=== PATIENT | male | born 1995 | race Caucasian/White ===

== ENCOUNTER 2016-03-18 20:55 | Emergency (ER) | payer OTHER ==
[~2016-03-18 20:55] MED LIST: TYLENOL #3
[2016-03-18] MEDS ORDERED: ONDANSETRON 4 MG ORAL DISINTEGRATING TAB (S0181) As Ordered ONE (22:06)
[2016-03-18] MEDS ORDERED: METHOCARBAMOL 500 MG TAB As Ordered ONE ×2 (22:06→22:07)
[2016-03-18] MEDS ORDERED: NORCO 5/325MG TABLET (BULK) As Ordered ONE (22:06)
--- NOTE | 2016-03-18 22:17 | EDDOCDS ---
Physician Documentation [facility] Name: Isai Cardenas Age: 20 yrs Sex: Male : 1995 Arrival Date: 03/18/2016 Time: 20:55 Bed TR7 Private MD: No Pcp Disposition: 03/18/16 22:08 Discharged to Home/Self Care. Impression: Strain of muscle, fascia and tendon of lower back, Acute upper respiratory infection, unspecified. - Condition is Stable. - Discharge Instructions: Lumbosacral Strain, Back Pain, Adult, Upper Respiratory Infection, Adult. - Prescriptions for Ibuprofen 800 mg Oral Tablet - take 1 tablet by ORAL route every 8 hours As needed take with food; 30 tablet. Robaxin 500 mg Oral Tablet - take 2 tablet by ORAL route every 6 hours As needed; 40 tablet. - Medication Reconciliation, Local Pharmacy Hours form. - Follow up: Private Physician; When: Call to arrange an appointment; Reason: Recheck today's complaints, Continuance of care. - Problem is new. - Symptoms are unchanged. - Notes: do not take motrin if you actually have perscription for toradol (ketorolac) as both medications are NSAIDS and cant not be combine Historical: - Allergies: Ceclor; - Home Meds: 1. none - PMHx: Migraine Headachesresolved; - PSHx: Inguinal hernia repair; Tubes in ears; vericoceles; - Social history: Smoking status: Patient uses tobacco products, light tobacco smoker. No barriers to communication noted, The patient speaks fluent South Sudanese, Speaks appropriately for age. - Family history: Not pertinent. - : The pt / caregiver states he / she is not on anticoagulants. Home medication list is obtained from the patient. - Exposure Risk Screening:: None identified. Vital Signs: 03/18 20:57 BP 161 / 79; Pulse 112; Resp 22 S; Temp 100.1(O); Pulse Ox 95% on R/A; Weight 62.6 kg / dd6 138.01 lbs (R); Height 5 ft. 7 in. (170.18 cm) (R); 20:57 Body Mass Index 21.61 (62.60 kg, 170.18 cm) dd6 MDM: 22:02 Financial registration complete. kf3 22:03 Ondansetron ODT Oral Disintegrating Tablet 4 mg PO once ordered. mo1 22:03 HYDROcodone-acetaminophen 4 pack- 5 mg-325 mg 1 packets PO Per package directions; mo1 Dispense with patient. 1 po q4h prn for pain ordered. 22:03 Methocarbamol 1 grams PO once ordered. mo1 22:06 [facility] Payment Agreement was scanned into [employer] and attached to record. kf3 Administered Medications: 22:10 Drug: Ondansetron ODT 4 mg [ondansetron 4 mg disintegrating tablet (1 tabs)] Route: PO; rs3 22:10 Drug: HYDROcodone-acetaminophen 4 pack- 1 packets [hydrocodone 5 mg-acetaminophen 325 rs3 mg tablet (1 tabs)] {Co-Signature: nahum (Oleg Lawson RN).} Route: PO; 22:10 Drug: Methocarbamol 1 grams [methocarbamol 500 mg tablet (2 tabs)] Route: PO; rs3 Signatures: Jacqui Roman RN RN km Oleg Lawson RN RN cz Navjot Parmar, Reg Reg kf3 Christopher Wu PA PA mo1 Shyanne Buitrago RN rs3 Oelg Lawson RN cz The chart was reviewed and I authenticate all verbal orders and agree with the evaluation and treatment provided.Attachments: 22:06 [facility] Payment Agreement kf3 MTDD
--- NOTE | 2016-03-18 22:17 | EDDOCDS ---
Nurse's Notes [facility] Name: Isai Cardenas Age: 20 yrs Sex: Male : 1995 Arrival Date: 03/18/2016 Time: 20:55 Bed TR7 Private MD: No Pcp Diagnosis: Strain of muscle, fascia and tendon of lower back;Acute upper respiratory infection, unspecified Presentation: 03/18 21:02 Presenting complaint: Patient states: Was diagnosed with the flu earlier today. Was not kmg1 able to get to the pharmacy to get meds before it closed. Also having back spasms. Adult Sepsis Screening: The patient does not have new or worsening altered mentation. Patient has a respiratory rate of greater than or equal to 22 (1 point). Systolic blood pressure is greater than 100. Patient has a qSOFA score of 0- Negative Sepsis Screen. Suicide/Homicide risk assessment- the patient denies having any suicidal and/or homicidal ideations and does not present with any other emotional, behavioral or mental health complaints. Status: The patient is a dependent. Transition of care: patient was not received from another setting of care. 21:02 Acuity: JA Level 5 [facility] 21:02 Method Of Arrival: Walkin/Carried/Asstd [facility] [place] Triage Assessment: 21:04 General: Appears in no apparent distress, comfortable, Behavior is appropriate for age, kmg1 cooperative, pleasant. Pain: Location: back Pain currently is 10 out of 10 on a pain scale. Quality of pain is described as spasms. Pt Declines HIV testing. Neurological: Reports headache weakness. GI: Reports nausea, vomiting. Historical: - Allergies: Ceclor; - Home Meds: 1. none - PMHx: Migraine Headachesresolved; - PSHx: Inguinal hernia repair; Tubes in ears; vericoceles; - Social history: Smoking status: Patient uses tobacco products, light tobacco smoker. No barriers to communication noted, The patient speaks fluent Moldovan, Speaks appropriately for age. - Family history: Not pertinent. - : The pt / caregiver states he / she is not on anticoagulants. Home medication list is obtained from the patient. - Exposure Risk Screening:: None identified. Screenin:14 Screening information is obtained from the patient. Fall risk: No risks identified. cz Assistance ADL's: requires no assistance with activities of daily living. Abuse/DV Screen: The patient / caregiver reports he/she is: not in a situation that causes fear, pain or injury. Nutritional screening: No deficits noted. Advance Directives: Currently, there is no health care proxy. There is no active DNR order. There is no living will. There is no Power of Hand Ii Cutter. Advance directive information has not previously been placed in an [facility] medical record. home support is adequate. Assessment: 22:14 Reassessment: Patient appears in no apparent distress at this time. cz Vital Signs: 20:57 BP 161 / 79; Pulse 112; Resp 22 S; Temp 100.1(O); Pulse Ox 95% on R/A; Weight 62.6 kg dd6 (R); Height 5 ft. 7 in. (170.18 cm) (R); 20:57 Body Mass Index 21.61 (62.60 kg, 170.18 cm) dd6 Vitals: 20:57 Log In Time: March 18, 2016 at 20:55. dd6 ED Course: 20:57 Patient visited by Denny Gonzalez PCA. dd6 20:57 No Pcp is Private Physician. dd6 20:57 Patient moved to Waiting dd6 20:59 Patient moved to Pre RCE dd6 21:03 Triage Initiated kmg1 21:07 Patient visited by Jacqui Roman RN. kmg1 21:24 Patient moved to Triage 1 ar3 21:49 Christopher Wu PA is PHCP. mo1 21:49 Ashish Box DO is Attending Physician. mo1 21:56 Patient visited by Christopher Wu PA. mo1 22:06 [facility] Payment Agreement was scanned into [employer] and attached to record. kf3 22:14 Patient moved to TR7 ar3 22:14 The patient / caregiver is instructed regarding the plan of care and ED course. cz 22:14 No IV's were initiated during this patient's visit. No procedures done that require cz assistance. Administered Medications: 22:10 Drug: Ondansetron ODT 4 mg [ondansetron 4 mg disintegrating tablet (1 tabs)] Route: PO; rs3 22:10 Drug: HYDROcodone-acetaminophen 4 pack- 1 packets [hydrocodone 5 mg-acetaminophen 325 rs3 mg tablet (1 tabs)] {Co-Signature: cz (Oleg Zecher RN).} Route: PO; 22:10 Drug: Methocarbamol 1 grams [methocarbamol 500 mg tablet (2 tabs)] Route: PO; rs3 Order Results: There are currently no results for this order. Outcome: 22:08 Discharge ordered by Provider. mo1 22:14 Discharge Assessment: Patient awake, alert and oriented x 3. No cognitive and/or cz functional deficits noted. Patient verbalized understanding of disposition instructions. patient administered narcotics - no. The following High Risk Discharge criteria are identified: None. Discharged to home ambulatory. Condition: stable. Discharge instructions given to patient, Instructed on discharge instructions, follow up and referral plans. medication usage, Demonstrated understanding of instructions, medications, Pt was receptive of discharge instructions/ teaching. Prescriptions given X 2. No special radiology studies were completed. Property :Personal belongings accompany Pt. 22:16 Patient left the ED. cz Signatures: Jacqui Roman, RN RN km Oleg Lawson RN RN cz Navjot Parmar, Reg Reg kf3 Denny Gonzalez, DINKEY SKINNER DINKEY SKINNER dd6 Shyanne BuitragoRN RN rs3 Susan Dumont, DINKEY SKINNER DINKEY SKINNER ar3 Christopher Wu PA PA mo1 Oleg sidhu MTDD
--- NOTE | 2016-03-20 23:17 | EDDOCDS ---
Physician Documentation [facility] Name: Isai Cardenas Age: 20 yrs Sex: Male : 1995 Arrival Date: 03/18/2016 Time: 20:55 Bed TR7 Private MD: No Pcp Disposition: 03/18/16 22:08 Discharged to Home/Self Care. Impression: Strain of muscle, fascia and tendon of lower back, Acute upper respiratory infection, unspecified. - Condition is Stable. - Discharge Instructions: Lumbosacral Strain, Back Pain, Adult, Upper Respiratory Infection, Adult. - Prescriptions for Ibuprofen 800 mg Oral Tablet - take 1 tablet by ORAL route every 8 hours As needed take with food; 30 tablet. Robaxin 500 mg Oral Tablet - take 2 tablet by ORAL route every 6 hours As needed; 40 tablet. - Medication Reconciliation, Local Pharmacy Hours form. - Follow up: Private Physician; When: Call to arrange an appointment; Reason: Recheck today's complaints, Continuance of care. - Problem is new. - Symptoms are unchanged. - Notes: do not take motrin if you actually have perscription for toradol (ketorolac) as both medications are NSAIDS and cant not be combine Historical: - Allergies: Ceclor; - Home Meds: 1. none - PMHx: Migraine Headachesresolved; - PSHx: Inguinal hernia repair; Tubes in ears; vericoceles; - Social history: Smoking status: Patient uses tobacco products, light tobacco smoker. No barriers to communication noted, The patient speaks fluent Estonian, Speaks appropriately for age. - Family history: Not pertinent. - : The pt / caregiver states he / she is not on anticoagulants. Home medication list is obtained from the patient. - Exposure Risk Screening:: None identified. Vital Signs: 03/18 20:57 BP 161 / 79; Pulse 112; Resp 22 S; Temp 100.1(O); Pulse Ox 95% on R/A; Weight 62.6 kg / dd6 138.01 lbs (R); Height 5 ft. 7 in. (170.18 cm) (R); 20:57 Body Mass Index 21.61 (62.60 kg, 170.18 cm) dd6 MDM: 22:02 Financial registration complete. kf3 22:03 Ondansetron ODT Oral Disintegrating Tablet 4 mg PO once ordered. mo1 22:03 HYDROcodone-acetaminophen 4 pack- 5 mg-325 mg 1 packets PO Per package directions; mo1 Dispense with patient. 1 po q4h prn for pain ordered. 22:03 Methocarbamol 1 grams PO once ordered. mo1 22:06 [facility] Payment Agreement was scanned into [employer] and attached to record. kf3 03/19 11:00 T-Sheet-- Draft Copy was scanned into [employer] and attached to record. gb Administered Medications: 03/18 22:10 Drug: Ondansetron ODT 4 mg [ondansetron 4 mg disintegrating tablet (1 tabs)] Route: PO; rs3 22:10 Drug: HYDROcodone-acetaminophen 4 pack- 1 packets [hydrocodone 5 mg-acetaminophen 325 rs3 mg tablet (1 tabs)] {Co-Signature: nahum (Oleg Lawson RN).} Route: PO; 22:10 Drug: Methocarbamol 1 grams [methocarbamol 500 mg tablet (2 tabs)] Route: PO; rs3 Signatures: Jacqui Roman, RN RN km Oleg Lawson RN RN cz Jennie Lerner, Reg Reg gb Navjot Parmar, Reg Reg kf3 Christopher Wu PA PA mo1 Shyanne Buitrago RN rs3 Oleg sidhu The chart was reviewed and I authenticate all verbal orders and agree with the evaluation and treatment provided.Attachments: 22:06 [facility] Payment Agreement kf3 03/19 11:00 T-Sheet-- Draft Copy gb Chart Complete MTDD
--- NOTE | 2016-03-20 23:17 | EDDOCDS ---
Physician Documentation [facility] Name: Isai Cardenas Age: 20 yrs Sex: Male : 1995 Arrival Date: 03/18/2016 Time: 20:55 Bed TR7 Private MD: No Pcp Disposition: 03/18/16 22:08 Discharged to Home/Self Care. Impression: Strain of muscle, fascia and tendon of lower back, Acute upper respiratory infection, unspecified. - Condition is Stable. - Discharge Instructions: Lumbosacral Strain, Back Pain, Adult, Upper Respiratory Infection, Adult. - Prescriptions for Ibuprofen 800 mg Oral Tablet - take 1 tablet by ORAL route every 8 hours As needed take with food; 30 tablet. Robaxin 500 mg Oral Tablet - take 2 tablet by ORAL route every 6 hours As needed; 40 tablet. - Medication Reconciliation, Local Pharmacy Hours form. - Follow up: Private Physician; When: Call to arrange an appointment; Reason: Recheck today's complaints, Continuance of care. - Problem is new. - Symptoms are unchanged. - Notes: do not take motrin if you actually have perscription for toradol (ketorolac) as both medications are NSAIDS and cant not be combine Historical: - Allergies: Ceclor; - Home Meds: 1. none - PMHx: Migraine Headachesresolved; - PSHx: Inguinal hernia repair; Tubes in ears; vericoceles; - Social history: Smoking status: Patient uses tobacco products, light tobacco smoker. No barriers to communication noted, The patient speaks fluent Cymro, Speaks appropriately for age. - Family history: Not pertinent. - : The pt / caregiver states he / she is not on anticoagulants. Home medication list is obtained from the patient. - Exposure Risk Screening:: None identified. Vital Signs: 03/18 20:57 BP 161 / 79; Pulse 112; Resp 22 S; Temp 100.1(O); Pulse Ox 95% on R/A; Weight 62.6 kg / dd6 138.01 lbs (R); Height 5 ft. 7 in. (170.18 cm) (R); 20:57 Body Mass Index 21.61 (62.60 kg, 170.18 cm) dd6 MDM: 22:02 Financial registration complete. kf3 22:03 Ondansetron ODT Oral Disintegrating Tablet 4 mg PO once ordered. mo1 22:03 HYDROcodone-acetaminophen 4 pack- 5 mg-325 mg 1 packets PO Per package directions; mo1 Dispense with patient. 1 po q4h prn for pain ordered. 22:03 Methocarbamol 1 grams PO once ordered. mo1 22:06 [facility] Payment Agreement was scanned into [employer] and attached to record. kf3 03/19 11:00 T-Sheet-- Draft Copy was scanned into [employer] and attached to record. gb Administered Medications: 03/18 22:10 Drug: Ondansetron ODT 4 mg [ondansetron 4 mg disintegrating tablet (1 tabs)] Route: PO; rs3 22:10 Drug: HYDROcodone-acetaminophen 4 pack- 1 packets [hydrocodone 5 mg-acetaminophen 325 rs3 mg tablet (1 tabs)] {Co-Signature: nahum (Oleg Lawson RN).} Route: PO; 22:10 Drug: Methocarbamol 1 grams [methocarbamol 500 mg tablet (2 tabs)] Route: PO; rs3 Signatures: Jacqui Roman, RN RN km Oleg Lawson RN RN cz Jennie Lerner, Reg Reg gb Navjot Parmar, Reg Reg kf3 Christopher Wu PA PA mo1 Shyanne Buitrago RN rs3 Oleg sidhu The chart was reviewed and I authenticate all verbal orders and agree with the evaluation and treatment provided.Attachments: 22:06 [facility] Payment Agreement kf3 03/19 11:00 T-Sheet-- Draft Copy gb Chart Complete MTDD
--- NOTE | 2016-03-20 23:17 | EDDOCDS ---
Nurse's Notes [facility] Name: Isai Cardenas Age: 20 yrs Sex: Male : 1995 Arrival Date: 03/18/2016 Time: 20:55 Bed TR7 Private MD: No Pcp Diagnosis: Strain of muscle, fascia and tendon of lower back;Acute upper respiratory infection, unspecified Presentation: 03/18 21:02 Presenting complaint: Patient states: Was diagnosed with the flu earlier today. Was not kmg1 able to get to the pharmacy to get meds before it closed. Also having back spasms. Adult Sepsis Screening: The patient does not have new or worsening altered mentation. Patient has a respiratory rate of greater than or equal to 22 (1 point). Systolic blood pressure is greater than 100. Patient has a qSOFA score of 0- Negative Sepsis Screen. Suicide/Homicide risk assessment- the patient denies having any suicidal and/or homicidal ideations and does not present with any other emotional, behavioral or mental health complaints. Status: The patient is a dependent. Transition of care: patient was not received from another setting of care. 21:02 Acuity: JA Level 5 [facility] [place] 21:02 Method Of Arrival: Walkin/Carried/Asstd [facility] [place] Triage Assessment: 21:04 General: Appears in no apparent distress, comfortable, Behavior is appropriate for age, kmg1 cooperative, pleasant. Pain: Location: back Pain currently is 10 out of 10 on a pain scale. Quality of pain is described as spasms. Pt Declines HIV testing. Neurological: Reports headache weakness. GI: Reports nausea, vomiting. Historical: - Allergies: Ceclor; - Home Meds: 1. none - PMHx: Migraine Headachesresolved; - PSHx: Inguinal hernia repair; Tubes in ears; vericoceles; - Social history: Smoking status: Patient uses tobacco products, light tobacco smoker. No barriers to communication noted, The patient speaks fluent Eritrean, Speaks appropriately for age. - Family history: Not pertinent. - : The pt / caregiver states he / she is not on anticoagulants. Home medication list is obtained from the patient. - Exposure Risk Screening:: None identified. Screenin:14 Screening information is obtained from the patient. Fall risk: No risks identified. cz Assistance ADL's: requires no assistance with activities of daily living. Abuse/DV Screen: The patient / caregiver reports he/she is: not in a situation that causes fear, pain or injury. Nutritional screening: No deficits noted. Advance Directives: Currently, there is no health care proxy. There is no active DNR order. There is no living will. There is no Power of Fisheries Manager. Advance directive information has not previously been placed in an [facility] medical record. home support is adequate. Assessment: 22:14 Reassessment: Patient appears in no apparent distress at this time. cz Vital Signs: 20:57 BP 161 / 79; Pulse 112; Resp 22 S; Temp 100.1(O); Pulse Ox 95% on R/A; Weight 62.6 kg dd6 (R); Height 5 ft. 7 in. (170.18 cm) (R); 20:57 Body Mass Index 21.61 (62.60 kg, 170.18 cm) dd6 Vitals: 20:57 Log In Time: March 18, 2016 at 20:55. dd6 ED Course: 20:57 Patient visited by Denny Gonzalez PCA. dd6 20:57 No Pcp is Private Physician. dd6 20:57 Patient moved to Waiting dd6 20:59 Patient moved to Pre RCE dd6 21:03 Triage Initiated kmg1 21:07 Patient visited by Jacqui Roman RN. kmg1 21:24 Patient moved to Triage 1 ar3 21:49 Christopher Wu PA is PHCP. mo1 21:49 Ashish Box DO is Attending Physician. mo1 21:56 Patient visited by Christopher Wu PA. mo1 22:06 [facility] Payment Agreement was scanned into [employer] and attached to record. kf3 22:14 Patient moved to TR7 ar3 22:14 The patient / caregiver is instructed regarding the plan of care and ED course. cz 22:14 No IV's were initiated during this patient's visit. No procedures done that require cz assistance. 03/19 11:00 T-Sheet-- Draft Copy was scanned into [employer] and attached to record. gb Administered Medications: 03/18 22:10 Drug: Ondansetron ODT 4 mg [ondansetron 4 mg disintegrating tablet (1 tabs)] Route: PO; rs3 22:10 Drug: HYDROcodone-acetaminophen 4 pack- 1 packets [hydrocodone 5 mg-acetaminophen 325 rs3 mg tablet (1 tabs)] {Co-Signature: nahum (Oleg Lawson RN).} Route: PO; 22:10 Drug: Methocarbamol 1 grams [methocarbamol 500 mg tablet (2 tabs)] Route: PO; rs3 Order Results: There are currently no results for this order. Outcome: 22:08 Discharge ordered by Provider. mo1 22:14 Discharge Assessment: Patient awake, alert and oriented x 3. No cognitive and/or cz functional deficits noted. Patient verbalized understanding of disposition instructions. patient administered narcotics - no. The following High Risk Discharge criteria are identified: None. Discharged to home ambulatory. Condition: stable. Discharge instructions given to patient, Instructed on discharge instructions, follow up and referral plans. medication usage, Demonstrated understanding of instructions, medications, Pt was receptive of discharge instructions/ teaching. Prescriptions given X 2. No special radiology studies were completed. Property :Personal belongings accompany Pt. 22:16 Patient left the ED. cz Signatures: Jacqui Roman RN RN km Oleg Lawson RN RN cz Jennie Lerner, Reg Reg gb Navjot Parmar, Reg Reg kf3 Denny Gonzalez, MEDICAL SECRETARY MEDICAL SECRETARY dd6 Shyanne Buitrago RN RN rs3 Susan Dumont, MEDICAL SECRETARY MEDICAL SECRETARY ar3 Christopher Wu PA PA mo1 Oleg sidhu Chart Complete MTDD
== END 2016-03-18 22:16 | disposition home or self-care (01) ==
LOC: M ED 20:55
DX: S33.9XXA Sprain of unspecified parts of lumbar spine and pelvis, initial encounter (principal); X58.XXXA Exposure to other specified factors, initial encounter; Y92.89 Other specified places as the place of occurrence of the external cause; Y93.89 Activity, other specified; Y99.8 Other external cause status; R11.2 Nausea with vomiting, unspecified; J06.9 Acute upper respiratory infection, unspecified; G43.909 Migraine, unspecified, not intractable, without status migrainosus; F17.210 Nicotine dependence, cigarettes, uncomplicated; Z88.1 Allergy status to other antibiotic agents

== ENCOUNTER 2016-04-24 10:54 | Emergency (ER) | payer OTHER ==
--- NOTE | 2016-04-24 11:57 | REP ---
CT cervical spine without contrast HISTORY: Trauma COMPARISON: 09/06/2010 There is no acute fracture or subluxation. There is no disc bulge or herniation. The spinal canal and neural foramina are patent. The intervertebral discs and vertebral bodies are normal in height. IMPRESSION: There is no acute fracture or subluxation. Signed by Anish Lamas MD 04/24/2016 11:49 A
--- NOTE | 2016-04-24 12:03 | REP ---
MAXILLOFACIAL CT WITHOUT CONTRAST: HISTORY: Trauma. 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 Minimal mucosal thickening is present in the ethmoid sinuses. The remaining sinuses are clear. The ostiomeatal units are patent. The middle and inferior nasal turbinates are partially paradoxical. There is minimal deviation of the nasal septum to the right. The cribriform plate, medial wynn of the orbits and optic canals are intact. The carotid canals form a segment of the posterolateral wynn of the sphenoid sinus. There are nasal bone fractures. Soft tissue swelling is present. IMPRESSION: 1. Sinus mucosal thickening as described above. 2. Nasal bone fracture. Signed by Anish Lamas MD 04/24/2016 12:04 P
[2016-04-24] MEDS ORDERED: LIDOCAINE 1% MDV 20ML VIAL As Ordered ONE (13:02)
[2016-04-24] MEDS ORDERED: ADACEL/BOOSTRIX VACCINE (DIPHTH/PERTUSS/ACELL/TETANUS)0.5ML SYR (90715) As Ordered ONE (13:30)
--- NOTE | 2016-04-24 13:37 | REP ---
CT Head without contrast HISTORY: Trauma COMPARISON: MR 03/02/2013 There is no intraparenchymal hemorrhage, acute infarct, mass or midline shift. The ventricular system is normal in appearance. There is no extra cerebral collection. There is no fracture. The visualized sinuses are clear. IMPRESSION: There is no intracranial lesion. Signed by Anish Lamas MD 04/24/2016 01:28 P
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
== END 2016-04-24 13:39 | disposition home or self-care (01) ==
LOC: M ED 10:54
DX: S02.2XXA Fracture of nasal bones, initial encounter for closed fracture (principal); S01.112A Laceration without foreign body of left eyelid and periocular area, initial encounter; S20.212A Contusion of left front wall of thorax, initial encounter; S01.20XA Unspecified open wound of nose, initial encounter; Z87.891 Personal history of nicotine dependence; Z88.1 Allergy status to other antibiotic agents; Z23 Encounter for immunization; V49.40XA Driver injured in collision with unspecified motor vehicles in traffic accident, initial encounter; Y92.410 Unspecified street and highway as the place of occurrence of the external cause; Y93.89 Activity, other specified; Y99.9 Unspecified external cause status

== ENCOUNTER → 2021-03-10 | Outpatient (REF) | LOC: M LABSMTC 10:02 | PROVIDERS: ATTEND Pediatrics | DX: Z11.52 Encounter for screening for COVID-19 (principal) ==

== ENCOUNTER 2023-02-25 12:03 | Emergency (ER) | payer OTHER, SELFPAY ==
[~2023-02-25] VITALS: Ht 170.2 cm; Wt 68.5 kg
[2023-02-25] MEDS ORDERED: ONDANSETRON 4MG 2ML VIAL IV ONE (12:35)
[2023-02-25] MEDS ORDERED: PANTOPRAZOLE 40MG VIAL IV ONE (12:35)
[2023-02-25] MEDS ORDERED: NS 1,000 ML IV ONE (12:35)
[2023-02-25 12:49] LABS: BASO # 0.1 10^3/uL (0.0-0.2); BASO % 0.3 % (0.0-1.0); EOS # 0.1 10^3/uL (0.0-0.5); EOS % 0.4 % (0.0-3.0); LYMPH % 4.2 % (24.0-44.0); MEAN CORPUSCULAR HEMOGLOBIN 29.9 pg (27.0-33.0); MEAN CORPUSCULAR HGB CONC 35.7 g/dl (32.0-36.5); MEAN CORPUSCULAR VOLUME 83.7 fl (80.0-96.0); MONO # 0.7 10^3/uL (0.0-0.8); MONO % 3.2 % (2.0-8.0); NEUTROPHILS # 21.1 10^3/uL (1.5-8.5); NEUTROPHILS % 91.3 % (36.0-66.0); PLATELET COUNT, AUTOMATED 338 10^3/uL (150-450); WHITE BLOOD COUNT 23.1 10^3/uL (4.0-10.0)
[2023-02-25 12:58] LABS: HEMATOCRIT 54.3 % (42.0-52.0); HEMOGLOBIN 19.4 g/dl (13.5-17.5); RED BLOOD COUNT 6.49 10^6/uL (4.30-6.10)
[2023-02-25 13:21] LABS: LIPASE 32 U/L (12-53)
[2023-02-25 13:23] LABS: ALBUMIN 5.3 G/DL (3.2-5.2); ALKALINE PHOSPHATASE 67 U/L (46-116); ALT/SGPT 20 U/L (7.0-40); AST/SGOT 17 U/L (<34); BILIRUBIN,DIRECT 0.4 MG/DL (<0.4); BILIRUBIN,TOTAL 1.4 MG/DL (0.3-1.2); BLOOD UREA NITROGEN 22 MG/DL (9-23); CALCIUM LEVEL 11.1 MG/DL (8.5-10.1); CARBON DIOXIDE LEVEL 17 MMOL/L (20-31); CHLORIDE LEVEL 105 MMOL/L (98-107); CK-MB VALUE MASS < 1.0 NG/ML (<3.6); CPK CREATINE PHOSPHOKINASE 55 U/L (46-171); GLOMERULAR FILTRATION RATE > 60.0 (>60); GLUCOSE, FASTING 179 MG/DL (60-100); MB/CK RELATIVE INDEX 1.81 (< OR =4); POTASSIUM SERUM 4.4 MMOL/L (3.5-5.1); SODIUM LEVEL 139 MMOL/L (136-145); TOTAL PROTEIN 8.6 G/DL (5.7-8.2)
[2023-02-25] MEDS ORDERED: MAALOX 30 ML SUSP *UDC PO ONE (13:30)
[2023-02-25] MEDS ORDERED: ISOVUE-370 76% 100ML VIAL As Ordered ONE (13:44)
[2023-02-25 14:18] LABS: CK-MB VALUE MASS < 1.0 NG/ML (<3.6)
[2023-02-25 14:19] LABS: CPK CREATINE PHOSPHOKINASE 51 U/L (46-171); MB/CK RELATIVE INDEX 1.96 (< OR =4)
[2023-02-25] MEDS ORDERED: ONDA4TAB6 PO (16:45)
[2023-02-25 17:00] VITALS: BP 122/76
[2023-02-25 17:03] VITALS: TEMP 98.8; O2SAT 97
== END 2023-02-25 17:37 | disposition home or self-care (01) ==
LOC: M ED 12:03
DX: R11.10 Vomiting, unspecified (principal); R19.7 Diarrhea, unspecified; Z87.891 Personal history of nicotine dependence
CPT/HCPCS: 71046; 74177; 80048; 80076; 82550; 82553; 83690; 84484; 85025; 93005; 93041; 96361; 96374; 96375; 99285; C9113; J2405; Q9967